=== PATIENT | male | born 1995 | race Two or more races ===

== ENCOUNTER 2025-06-04 06:39 | Inpatient (IN) | payer MEDICAID, SELFPAY ==
[2025-06-04] VITALS (11 sets, daily range): BP systolic 115–138; BP diastolic 79–94; PULSE 74–96; RESP 17–96; TEMP 36.2–37.1; O2SAT 94–98; BMI 22.8
--- NOTE | 2025-06-04 06:49 | EKG_ITS ---
[facility] (Formerly [facility]) Test Date: 2025-06-04 Pat Name: AN WALLACEDepartment: Room: - Gender: Male External Relations Manager: : 1995 Requested By: Fausto Mccormick (CUSTOMER SUPPORT AGENT) Order Number: [id number] Reading MD: Fausto Mccormick (CUSTOMER SUPPORT AGENT) Measurements Intervals [place] Rate: 94 P: 39 WY: 113 QRS: 7 QRSD: 85 T: 44 QT: 311 QTc: 389 Interpretive Statements SINUS RHYTHM WITH SHORT W[place] INTERVAL ST ELEVATION, PROBABLY EARLY REPOLARIZATION [ST ELEVATION WITH NORMALLY INFLECTED T-WAVE] No previous ECG available for comparison /[id number]/S0/[id number].pdf
--- NOTE | 2025-06-04 06:49 | XR_ITS ---
EXAMINATION: PA lateral chest 2 views TECHNIQUE: Upright PA lateral chest 2 views Date and time: June 04, 2025, 0706 hours INDICATIONS: Worsening chest pain 2 months FINDINGS: Poor inspiratory effort No significant cardiac enlargement No pneumonia or pulmonary edema IMPRESSION: Poor inspiratory effort chest x-ray
[2025-06-04 07:17] LABS: Basophils # (Auto) 0.0 Thou/mm3 (0.0-0.2); Basophils % (Auto) 0 % (0-2.5); Eosinophils # (Auto) 0.0 Thou/mm3 (0.0-0.5); Eosinophils % (Auto) 0 % (0-10); Hematocrit 45.1 % (41.0-53.0); Hemoglobin 14.7 g/dL (13.5-16.0); Immature Granulocytes Auto 0.05 Thou/mm3 (0.00-0.00); Lymphocytes # (Auto) 1.3 Thou/mm3 (1.0-4.8); Lymphocytes % (Auto) 12 % (10-50); Mean Corpuscular HGB Conc 32.6 g/dl (31.0-37.0); Mean Corpuscular Hemoglobin 25.8 pg (25.0-35.0); Mean Corpuscular Volume 79 fL (80-100); Monocytes # (Auto) 1.6 Thou/mm3 (0.0-0.8); Monocytes % (Auto) 15 % (0-12); Neutrophils # (Auto) 7.9 Thou/mm3 (1.8-7.7); Neutrophils % (Auto) 72 % (37-80); Nucleated Red Blood Cell # 0.00 Thou/mm3 (0.00-0.00); Nucleated Red Blood Cell % 0 /100 WBC (0); Platelet Count 279 Thou/mm3 (140-440); RDW Standard Deviation 42.1 fL (35.1-43.9); Red Blood Count 5.69 Miln/mm3 (4.50-5.90); White Blood Count 11.0 Thou/mm3 (3.8-10.6)
[2025-06-04 07:43] LABS: Alanine Aminotransferase 35 U/L (10-49); Albumin, Serum 5.7 gm/dL (3.5-5.0); Albumin/Globulin Ratio 1.9 (1.2-2.2); Alkaline Phosphatase 68 U/L (46-116); Anion Gap 12 (7-16); Aspartate Amino Transferase 31 U/L (0-34); BUN/Creatinine Ratio 8 Ratio (12-20); Bilirubin,Total 0.8 mg/dL (0.3-1.2); Blood Urea Nitrogen 7 mg/dL (9-23); Calcium 10.1 mg/dL (8.3-10.6); Calcium (Corrected) 10.1 mg/dL (8.5-10.1); Carbon Dioxide 28.7 mMol/L (20.0-31.0); Chloride 98 mMol/L (98-107); Creatinine (Component) 0.9 mg/dL (0.6-1.3); Estimated Creatinine Clearance 110.3 mL/min (>60); Globulin 3.0 gm/dL (2.3-3.5); Glucose 124 mg/dL (74-106); Osmolality,Calculated 276 (275-295); Potassium 3.9 mMol/L (3.4-5.1); Sodium 139 mMol/L (136-145); Total Protein 8.7 gm/dL (5.7-8.2); eGFR > 60 See Note
[2025-06-04 07:51] LABS: Troponin I 0.596 ng/mL (0.0-0.045)
--- NOTE | 2025-06-04 08:03 | EDNOTE_ITS ---
ED Chest Pain RME/HPI General Chief Complaint: Chest Pain Stated Complaint: CHEST PAIN Time Seen by Provider: 06/04/25 06:49 Arrival date/time: 06/04/25 06:39 30-year-old male who appears to be developmentally delayed presents to the emergency department today with father who reports that the patient has had sharon st pain ongoing since Sunday patient reports that he was mowing the lawn on Sunday developed pain in his chest reports since then has been having pain Limitations: no limitations Related Data Allergies Allergy/AdvReac Type Severity Reaction Status Date / Time No Known Allergies Allergy Verified 06/04/25 06:47 Review of Systems Review of Systems Systems Reviewed: All systems reviewed, normal except as documented Constitutional Constitutional: Reports system reviewed and no additional complaints, except as documented, Denies fever(s) and Denies headache(s) Eyes Eyes: Reports system reviewed and no additional complaints, except as documented and Denies blurry vision ENT Ears, Nose, Mouth, and Throat: Reports system reviewed and no additional complaints, except as documented, Denies headache(s), Denies nasal congestion and Denies nasal discharge Cardiovascular Cardiovascular: Reports system reviewed and no additional complaints, except as documented, Reports chest pain and Denies dyspnea Respiratory Respiratory: Reports system reviewed and no additional complaints, except as documented, Denies chest congestion, Denies cough and Denies dyspnea Gastrointestinal Gastrointestinal: Reports system reviewed and no additional complaints, except as documented and Denies abdominal pain Integumentary/Breasts Skin/Breast: Reports system reviewed and no additional complaints, except as documented and Denies rash Neurologic Neurologic: Reports system reviewed and no additional complaints, except as documented, Reports as per HPI and Denies headache(s) Past Medical History Past Medical History NEUROLOGIC: Negative Neurological Disorders CARDIAC: Negative Cardiac Disorders ED Exam General Limitations: Present no limitations General appearance: Present alert and in no apparent distress Head Head exam: Present atraumatic, normocephalic and normal inspection Eye Eye exam: Present normal appearance, PERRL and EOMI; Absent conjunctival injection ENT ENT exam: Present normal exam, normal oropharynx and mucous membranes moist Neck Neck exam: Present normal inspection, full ROM and trachea midline Chest Chest inspection: Present normal inspection and symmetric chest wall rise Respiratory Respiratory exam: Present normal lung sounds bilaterally; Absent respiratory distress Cardiovascular Cardiovascular exam: Present regular rate, normal rhythm and normal heart sounds; Absent bradycardia, tachycardia or irregular rhythm Abdominal Exam Abdominal exam: Present soft and normal bowel sounds; Absent distention, tenderness, guarding, rebound or rigidity Extremities Exam Extremities exam: Present normal inspection and full ROM Back Exam Back exam: Present normal inspection and full ROM Neurological Exam Neurological exam: Present alert, oriented X3 and CN II-XII intact Psychiatric Psychiatric exam: Present normal affect and normal mood Skin Skin exam: Present warm, dry, intact and normal color Course Quality Measures none Orders Category Date Time Status COVID-19 Screening Questionnaire NOW Care 06/04/25 08:12 Active Decision to Admit X1 Care 06/04/25 08:12 Completed EKG (ED ONLY) *Do not use* NOW Care 06/04/25 06:49 Completed Consult to Cardiology Stat Cons 06/04/25 08:02 Ordered EKG (ED Only) Stat Exams 06/04/25 06:49 Draft XR chest 2V Stat Exams 06/04/25 06:49 Completed CBC Stat Lab 06/04/25 07:10 Completed Comprehensive Metabolic Panel Stat Lab 06/04/25 07:10 Completed Drug Screen,Urine Stat Lab 06/04/25 08:32 Completed Troponin I Stat Lab 06/04/25 07:10 Completed Acetaminophen Jyoti [Tylenol Jyoti] Med 06/04/25 09:35 Discontinued 650 mg PO X1 ONE Aspirin [Ecotrin] Med 06/04/25 10:13 Discontinued 81 mg PO X1 ONE Vital Signs Vital signs: Vital Signs Temperature 98.1 F 06/04/25 06:42 Pulse Rate 93 06/04/25 06:42 Respiratory Rate 18 06/04/25 06:42 Blood Pressure 138/94 H 06/04/25 06:42 Pulse Oximetry (%) 97 06/04/25 06:42 Oxygen Delivery Method Room Air 06/04/25 06:42 O2 saturation 97% on room air with normal limits PROCEDURES: EKG Interpretation #1: Date of EK06/04/25 Time of EK:52 Rate: 94 Interpretation: Interpreted by me EKG Impression: Normal sinus rhythm, No acute ST-T changes, No ectopy, No ischemic changes, Normal QRS, Normal intervals and Normal axis Chest Pain MDM Narrative MDM Narrative:: 30-year-old male who appears to be developmentally delayed presents to the emergency department today with father who reports that the patient has had chest pain ongoing since Sunday patient reports that he was mowing the lawn on Sunday developed pain in his chest reports since then has been having pain On exam patient well-appearing does not appear ill or toxic On examination lungs are clear to auscultation Patient has no tachypnea or dyspnea no critical breathing Patient hemodynamically stable Lab work imaging EKG obtained EKG shows early repolarization no definite ST elevation Troponin elevated at 0.[address] Oakley Consultation: Spoke with Dr. Oakley informed that I would admit the patient to hospital Spoke with hospitalist will admit the patient to the hospital Patient data External records reviewed:: [facility] previous records Clinical information provided by:: patient Social determinants that could affect healthcare access:: none Patient has the following chronic illnesses:: None How is presenting disease/condition affected by chronic disease/condition?: no chronic disease Evaluation data The following diagnostics were reviewed and interpreted by me:: lab results, radiology exam(s) and EKG tracing(s) Lab and/or radiology exams considered but not ordered:: Labs, radiology, EKG obtained Interpretation Summary: Reviewed by me Medications / Prescriptions Medications or Prescriptions considered but not ordered:: Given no med Medication administrations:: Medication Administration History Acetaminophen (Acetaminophen 325 Mg Tablet) 1,000 mg PO Q6H PRN PRN Reason: Fever >100.4 Stop: 07/04/25 10:50 Atorvastatin Calcium (Atorvastatin Calcium 10 Mg Tablet) 10 mg PO HS [facility] Stop: 07/04/25 20:59 Enoxaparin Sodium (Enoxaparin Sod Inj 40 Mg/0.4 Ml Syringe) 40 mg SC QDAY [facility] Stop: 06/19/25 08:59 Ondansetron HCl (Ondansetron Inj 2 Mg/Ml Inj 2 Ml) 4 mg IVP Q6H PRN; Protocol PRN Reason: NAUSEA OR VOMITING Stop: 07/04/25 10:50 Pantoprazole Sodium (Pantoprazole Inj 40 Mg Vial) 40 mg IVP QDAY [facility] Stop: 07/05/25 08:59 Discontinued Medications Acetaminophen (Acetaminophen Jyoti 325 Mg/10 Ml Udc) 650 mg PO X1 ONE Stop: 06/04/25 09:36 Last Admin: 06/04/25 09:42 Dose: 650 mg Documented By: BY Aspirin (Aspirin Ec 81 Mg Tabec) 81 mg PO X1 ONE Stop: 06/04/25 10:14 Last Admin: 06/04/25 11:06 Dose: 81 mg Documented By: BY Given no meds Consultations Consultation(s) initiated? (list below): No Diagnosis Chest Pain Differential Diagnosis: pneumothorax, atypical chest pain, st elevation myocardial infarction, costochondritis and chest pain Most likely diagnosis given after review of the tests above:: Chest pain elevated troponin Admission Indicated Admission indicated?: indicated Admission Request Was there a request for admission?: Yes Admission Attestation Admission request attestation: Discussed case with [] from Hospitalist service regarding admission. Discussed patients ED course, exam findings, labs, and radiology results. The Hospitalist [agrees,declines] to accept the patient for admission. Disposition Plan Disposition Plan: Admit Discharge Plan Plan Patient Disposition: Admit Acute Care w/in Hospital Discharge Disposition comment: Stable Problem List Clinical Impression: Chest pain, Elevated troponin PA/AIR TUBE RELEASER Supervising Physician PA/AIR TUBE RELEASER Supervising Physician: Dr hills
[2025-06-04 08:48] LABS: Amphetamine/Methamp Scrn,U Negative (Negative); Barbiturate Screen,Urine Negative (Negative); Benzodiazepines Screen,Urine Negative (Negative); Benzoylecgonine Screen, Ur Negative (Negative); Fentanyl Screen,Urine Negative (Negative); Opiate Screen,Urine Negative (Negative); THC Screen,Urine Negative (Negative)
[2025-06-04] MEDS: ACETAMINOPHEN SOL 325 MG/10 ML UDC 650 MG PO (09:42)
--- NOTE | 2025-06-04 10:02 | PC.SS ---
This [employer] credit intern met with patient at bedside to complete initial assessment, his girlfriend and her parents are present. Gilberto is full code. He has given permission to have girlfriends mother Neela Thao complete assessment. Neela confirmed mailing address [place] and telephone number is [phone]. She states patient is developmentally delayed, he is not employed and does not attend day services. She states he is not conserved or has POA in place, and is not affiliated with [facility] but will inquire about services. Patient lives with her, she is his payee for his social security benefits, he recieves $1, 290 and receives $182 in food stamps. Patient PCP is Dr. Saeed at [facility] and uses [facility] pharmacy. No questions or concerns at this time.
--- NOTE | 2025-06-04 10:54 | ECHO_ITS ---
Patient Info Name: Gilberto Mcghee Age: 30 years : 1995 Gender: Male Ht: 168 cm Wt: 64 kg BSA: 1.74 m2 BP: 135 / 81 mmHg HR: 84 bpm Heart Rhythm: Sinus Rhythm Exam Date: 06/04/2025 2:10 PM Admit Date: 06/04/2025 Site: [facility] Room Number: [id number] Patient Status: I Exam Type: CA echo doppler complete Undergraduate Intern: Bibi Briggs Ordering Physician: Charli Durán Study Info Indications Chest pain, elevated troponins. - Primary Location: S2NX Left Ventricular Outflow Tract Name Value Normal LVOT 2D LVOT Diameter 1.9 cm LVOT Doppler LVOT Peak Velocity 95 cm/s LVOT Mean Gradient 2 mmHg LVOT VTI 20 cm LVOT VTI/AV VTI Ratio 0.9 LVOT Stroke Volume 57 ml Pulmonic Valve Name Value Normal PV Doppler PV Peak Velocity 115 cm/s PV Regurgitation Doppler CT Peak End Diastolic Velocity 45 cm/s Mitral Valve Name Value Normal MV Doppler MV Decel Henry 330 cm/s2 MV PHT 45 ms MV Area (PHT) 4.9 cm2 4.0-5.0 MV Diastolic Function MV E Peak Velocity 51 cm/s MV A Peak Velocity 55 cm/s MV E/A 0.9 MV Annular TDI MV Septal e' Velocity 8.2 cm/s MV E/e' (Septal) 6.3 MV Lateral e' Velocity 8.4 cm/s MV E/e' (Lateral) 6.1 MV e' Average 8.27 cm/s MV E/e' (Average) 6.2 Tricuspid Valve Name Value Normal TV Regurgitation Doppler TR Peak Velocity 261 cm/s Estimated PAP/RSVP RA Pressure 3 mmHg <=5 PA Systolic Pressure 30 mmHg <36 RV Systolic Pressure 30 mmHg <36 TV Annular TDI TV Lateral Debo s' Velocity 12.8 cm/s >=9.5 Aortic Valve Name Value Normal AV 2D/MM AV Cusp Sep (MM) 1.0 cm AV Doppler AV Peak Velocity 108 cm/s AV Mean Gradient 3 mmHg AV VTI 21 cm AV Area (Cont Eq VTI) 2.7 cm2 >=3.0 AV Area (Cont Eq He) 2.5 cm2 AV DI (He) 0.88 AV Regurgitation 2D LVOT Area 2.8 cm2 Ventricles Name Value Normal LV Dimensions 2D/MM IVS Diastolic Thickness (2D) 0.9 cm 0.6-1.0 LVID Diastole (2D) 5.2 cm 4.2-5.8 LVIW Diastolic Thickness (2D) 0.9 cm 0.6-1.0 LVID Systole (2D) 3.5 cm 2.5-4.0 LVOT Diameter 1.9 cm LV Mass (2D Cubed) 168.99 g 88.00-224.00 LV Mass Index (2D Cubed) 97 g/m2 49-115 Relative Wall Thickness (2D) 0.35 <=0.42 IVS/LVIW Diastolic Thickness (2D) 1.00 0.00-1.50 LV Fractional Shortening/Ejection Fraction 2D/MM LV Fractional Shortening (2D) 33 % 25-43 LV EF (2D Teichholz) 61 % RV Dimensions 2D/MM TV Lateral Debo s' Velocity 12.8 cm/s >=9.5 Atria Name Value Normal LA Dimensions LA Volume (4C A-L) 38 ml LA Volume (BP A-L) 37 ml Left Ventricle Left ventricular chamber dimension is normal. Left ventricular systolic function is normal with visually estimated ejection fraction of 60-65%. There is normal geometry noted in the left ventricle. Left ventricular segmental wall motion is normal. There is grade I diastolic dysfunction in the left ventricle. Right Ventricle Right ventricular chamber dimension is normal. Right ventricular systolic function is normal. Left Atrium Left atrial chamber dimension is normal. Right Atrium Right atrial chamber dimension is normal. Aortic Valve The aortic valve is trileaflet. There is no aortic valve sclerosis. There is no aortic valve stenosis with a peak velocity of 108 cm/s, mean gradient of 3 mmHg, and aortic valve area of 2.7 cm2. There is no aortic valve regurgitation. Pulmonic Valve The pulmonic valve is normal. There is no pulmonic valve stenosis. There is trace pulmonic regurgitation. Mitral Valve The mitral valve has normal leaflets. There is no mitral valve stenosis. There is trace mitral valve regurgitation. Tricuspid Valve The tricuspid valve leaflets are normal. There is no tricuspid valve stenosis. There is mild tricuspid valve regurgitation. No pulmonary hypertension, estimated pulmonary arterial systolic pressure is 30 mmHg and systemic blood pressure of 135 mmHg in systole. Pericardium/Pleural The pericardium appears normal. There is no pericardial effusion. No pleural effusion visualized. Inferior Vena Cava Normal inferior vena cava with >50% collapse upon inspiration consistent with normal right atrial pressure, 3 mmHg. Aorta The aortic measurements are indexed to age and body surface area. The aortic root at the sinus of Valsalva is not well visualized. The prox ascending aorta is not well visualized. Summary 1. Left ventricle size is normal and systolic function is normal. Estimated ejection fraction is 60-65%. There is grade I diastolic dysfunction. 2. Right ventricle chamber size is normal and systolic function is normal. 3. There is trace mitral valve regurgitation. 4. There is mild tricuspid valve regurgitation. 5. trace pulmonic valve regurgitation. 6. Normal IVC with estimated RA pressure 3 mmHg. Report Signatures Finalized by Tamanna Oakley on 06/04/2025 06:16 PM
[2025-06-04] MEDS: ASPIRIN EC 81 MG TABEC PO (11:06)
--- NOTE | 2025-06-04 12:15 | PC.NURSE ---
REPORT GIVEN TO NI
[2025-06-04 12:43] LABS: Troponin I 1.136 ng/mL (0.0-0.045)
--- NOTE | 2025-06-04 13:42 | ESHP_ITS ---
<Statement entered by Nallely Welsh MD - 06/05/25 08:03> Patient was seen and examined by me personally. I have directly supervised and reviewed documentation by the team resident and agree with its findings with any exceptions or additional findings as below. Plan of care was discussed with the attending, Dr. Borden. Nallely Welsh, PGY-3 Documentation for date of: 06/04/25 HPI History of Present Illness History of present illness: HPI: 30-year-old male with developmental disability presented to the ED on 06/04/2025 with a 2-day history of waxing and waning chest pain. He also endorsed pain in the bilateral shoulders. He denies having a cough, shortness of breath, or worsening of his symptoms during ambulation. He also reports a headache of 2 days duration. He was found to have an elevated troponin of 0.5 in the ED and a normal EKG. History was gathered with the help of the patient's girlfriend's father, who the patient lives with. This gentleman mentions that the patient has special needs. The patient is able to give one-word answers but it is uncertain if the patient fully comprehends his current situation. The patient was admitted for elevated troponins. ED course: * Vitals on arrival: Significant for stage II hypertension 138/94 * Labs on arrival: Significant for troponin 0.5, WBC 11.0, total protein 8.7, albumin 5.7. U tox negative. * Imaging: EKG showed a sinus rhythm. Chest x-ray negative for pneumonia. * Patient was given 650 mg of Tylenol, 81 mg aspirin. His troponin up trended to 1.1. History: (Gathered from patient and patient's girlfriend's father, who he lives with) * Past medical history: Special needs per the patient's girlfriend's father, otherwise no past medical history * Surgical history: Denies * Social history: Denies alcohol tobacco or drug use. Lives with girlfriend and her parents * Home medications: Denies * Allergies: No known drug allergies Review of Systems Review of Systems Narrative Review of Systems: Review of Systems: (Gathered from the patient and his girlfriend's father) * General: Denies fevers, chills. Does mention 1 episode of dizziness at an unspecified time. * HEENT: Endorses a headache and runny nose 2 days duration. * Cardiac: Admits to chest pain, waxing and waning, not made worse by walking or better by resting. * Pulmonary: Denies shortness of breath or cough. * GI: Denies nausea, vomiting, diarrhea, constipation, melena, or hematochezia. * : Denies dysuria, hematuria, frequency, or urgency. * MSK: Mentions pain in the shoulders bilaterally. * Neuro: Denies weakness, numbness, vision changes, or speech difficulty. Exam Vital Signs Temp Pulse Resp BP Pulse Ox O2 Del Method 97.2 F 84 22 H 135/81 H 96 Room Air 06/04/25 13:03 06/04/25 13:03 06/04/25 13:03 06/04/25 13:03 06/04/25 13:03 06/04/25 13:03 Narrative Exam General: Awake and in no acute distress. Conversational and non-toxic appearing. Neurologic: GCS 15. No gross neurological deficit, and patient able to move all 4 extremities. HEENT: Normocephalic, atraumatic, mucous membranes moist. Pupils reactive to light. Heart: Regular rate and rhythm, normal S1 and S2, no murmurs. Lungs: Clear to auscultation bilaterally with no wheezing or crackles. Abdomen: Soft, nondistended, nontender, positive bowel sounds. No guarding or rebound tenderness. Extremities: No edema. 2+ radial and dorsalis pedis pulses bilaterally. Skin: Warm. Dry. No rash or ecchymoses. Results: Labs 06/04/25 07:10 06/04/25 07:10 Labs: Short CBC 06/04/25 Range/Units 07:10 WBC 11.0 H (3.8-10.6) Thou/mm3 Hgb 14.7 (13.5-16.0) g/dL Hct 45.1 (41.0-53.0) % Plt Count 279 (140-440) Thou/mm3 BMP 06/04/25 07:10 Sodium 139 Potassium 3.9 Chloride 98 Carbon Dioxide 28.7 BUN 7 L Creatinine 0.9 Glucose 124 H Calcium 10.1 Cardiac Enzymes 06/04/25 06/04/25 Range/Units 07:10 11:43 Troponin I 0.596 H* 1.136 H* D (0.0-0.045) ng/mL Liver Function 06/04/25 Range/Units 07:10 Total Bilirubin 0.8 (0.3-1.2) mg/dL AST 31 (0-34) U/L ALT 35 (10-49) U/L Alkaline Phosphatase 68 (46-116) U/L Albumin 5.7 H (3.5-5.0) gm/dL Quality Measures Quality Measures none Medications Home Medications and Allergies Allergies Allergy/AdvReac Type Severity Reaction Status Date / Time No Known Allergies Allergy Verified 06/04/25 06:47 Visit Medications Acetaminophen (Acetaminophen 325 Mg Tablet) 1,000 mg PO Q6H PRN PRN Reason: Fever >100.4 Stop: 07/04/25 10:50 Atorvastatin Calcium (Atorvastatin Calcium 10 Mg Tablet) 10 mg PO HS [facility] Stop: 07/04/25 20:59 Enoxaparin Sodium (Enoxaparin Sod Inj 40 Mg/0.4 Ml Syringe) 40 mg SC QDAY [facility] Stop: 06/19/25 08:59 Ondansetron HCl (Ondansetron Inj 2 Mg/Ml Inj 2 Ml) 4 mg IVP Q6H PRN; Protocol PRN Reason: NAUSEA OR VOMITING Stop: 07/04/25 10:50 Pantoprazole Sodium (Pantoprazole Inj 40 Mg Vial) 40 mg IVP QDAY [facility] Stop: 07/05/25 08:59 Discontinued Medications Acetaminophen (Acetaminophen Jyoti 325 Mg/10 Ml Udc) 650 mg PO X1 ONE Stop: 06/04/25 09:36 Last Admin: 06/04/25 09:42 Dose: 650 mg Aspirin (Aspirin Ec 81 Mg Tabec) 81 mg PO X1 ONE Stop: 06/04/25 10:14 Last Admin: 06/04/25 11:06 Dose: 81 mg Assessment & Plan Plan Summary: 30-year-old male with a past medical history of developmental disability who presented to the ED with a 2-day history of chest pain on 06/04/2025. He was found to have elevated troponins but his EKG was negative for any acute ST segment changes. He was admitted for his elevated troponins. #Elevated troponins #Possible NSTEMI type II #Chest pain #Leukocytosis #Possible pericarditis * Patient endorsed to days of chest pain that has waxed and waned * Pain is not associated with physical activity * He has no associated shortness of breath * EKG was negative for any ST segment changes and there was a sinus rhythm * Repeat troponin approximately 3 hours after arrival was 1.1 * Patient did have a slightly elevated WBC count, likely reactive * When the patient got to the floors, he was noted to have diffuse ST segment changes on panel monitor * Patient also was found to have positional chest pain made worse with leaning forward and deep inspiration * Consider viral pericarditis versus NSTEMI type II versus infectious etiology versus stress Plan: * Aspirin 81 mg daily * Atorvastatin 10 mg nightly * Cardiology consulted * Echo ordered Reassessment: * Trend troponins #Developmental disability * Patient presented with his girlfriend's father, who he resides with * Per the patient's girlfriend's father, the patient has special needs * Patient gives one-word answers, though difficult to determine if patient is fully comprehending his current scenario Plan: * No direct intervention at this time Hospital Maintenance: DVT ppx: Subcu heparin 5000 units every 8 hours GI ppx: Not indicated Diet: Pending cardiology consult, okay to take oral medications IV lines: Peripheral IV Code status: Full code Dispo: Admitted to telemetry, trending troponins, pending echo and cardiology consult. Patient was seen and discussed with my attending physician Dr. Michi CANSECO and my senior resident Dr. Anitha CANSECO PGY-3. Charli Durán DO PGY-1. Attending Provider Attestation/Addendum I reviewed labs, imaging, EKG, home medications and prior available records. Face to face evaluation was performed by me. I have personally examined the patient and discussed assessment and plan with the IM team. I reviewed the resident note and agree with the plan with exceptions as below. Chest pain at rest Elevated troponin Leukocytosis EKG did showed nonspecific ST pattern Troponins continue to trend up Started aspirin and atorvastatin Ordered echocardiogram Consulted cardiology Management of pain as needed
[2025-06-04 16:32] LABS: Troponin I 0.995 ng/mL (0.0-0.045)
--- NOTE | 2025-06-04 16:40 | ESCONSULT_ITS ---
<Statement entered by Tamanna Oakley MD - 06/06/25 18:13> I personally evaluated and examined this patient with PGY 2Dr. Dusty Leon and the patient appears to be presenting to the hospital with fairly atypical sharp chest pains with different relation with expiration and inspiration worsened and inspiration atypical pain with EKG suggestive of possible pericarditis. There is slight troponin elevation not unusual with acute pericarditis patient is clinically improving no evidence of myocardial infarction will observe the patient for 24 hours up to 48 hours discharged home on anti-inflammatory therapy and he has severe pain colchicine also could be given. Evaluated patient with resident resident PGY 2 agree with treatment plan recommendation as documented by resident physician. HPI Data of Consult Requesting Physician: Maciel Borden MD Admitting Provider: Maciel Borden MD Attending Provider: Maciel Borden MD Primary Care Provider: Greyson Saeed MD Consult Narrative Reason for consult: Chest pain History of present illness: 30-year-old male with past medical history of Down syndrome presenting to the ED on 06/04 with chest pain. Patient states pain started sometime around Sunday and has progressively worsened over the past few days. Patient describes the pain as a stabbing sensation in the middle of his chest which does not radiate to any other part of his body. Patient denies having any associated shortness of breath, palpitations, PND, orthopnea or lower extremity edema; although, history is somewhat difficult to obtain as patient has underlying Down syndrome and developmental delay. Patient's mother in law is bedside and provided history regarding the patient's medical and living situation. Apparently, patient recently moved in with them but used to live with biological mother who apparently did not take good care of him. Patient has not seen a doctor in several years but is in the process of establishing care at this time. Patient does not take any prescribed medications but does state that about 1 week ago had an upper respiratory tract infection with mostly runny nose, which is still persisting. Patient's [id number] also states that the patient has contact with rats/mice and that apparently patient's fianc? has also been experiencing some chest discomfort. Patient otherwise has never seen a network operations project manager in the past and denies having any significant family history of cardiac disease. Medical history: As stated above Surgical history: Denies Allergies: NKDA Medications: Denies taking any prescribed medications, supplements Family history: Noncontributory Social history: Patient is , does not work, on disability, denies any alcohol, tobacco or illicit drug use ROS: All 12 systems assessed and the patient denies unless otherwise stated in HPI In the ED, patient presented mildly hypertensive 138/94, heart rate of 93, respiratory of 18, afebrile satting 97 on room air. Pertinent lab findings include WBC of 11, glucose 124, liver enzymes within normal limits, troponin Initially was 0.596, then up trended and peaked at 1.136 and is now downtrending at 0.995, UTOX was negative for any substance use, chest x-ray did not show any pneumonia or other significant cardiac enlargement, EKG did show diffuse ST changes noted on precordial and lateral leads but was otherwise sinus, echocardiogram is pending official read. Patient was admitted for the workup of NSTEMI type II, likely secondary to pericarditis from upper respiratory tract infection with cardiology consultation. cc:: cc: Maciel Borden MD Exam Vital Signs Temp Pulse Resp BP Pulse Ox O2 Del Method 97.2 F 84 22 H 135/81 H 96 Room Air 06/04/25 13:03 06/04/25 13:03 06/04/25 13:03 06/04/25 13:03 06/04/25 13:03 06/04/25 13:03 Narrative Exam Physical Exam: GENERAL: Awake, answers questions appropriately although slightly delayed, appears stated age HEENT: NC/AT. Moist mucosa. PERRLA/EOMI. Hypotelorism noted. CARDIO: Heart RRR, no obvious murmurs, rubs or gallops, no JVD. PULM: No coughing or visible SOB. Lungs CTA B/L. GI: Abdomen soft, NT/ND, +BS. SKIN/MSK/EXT: Thumb IP joint mucoid cyst noted bilaterally. No wounds/discoloration/rashes/edema/amputations. +Pedal pulses present B/L. NEURO: Oriented x3, no focal neurologic deficits, Moves extremities x4. Results Labs 06/04/25 07:10 06/04/25 07:10 Labs: Short CBC 06/04/25 Range/Units 07:10 WBC 11.0 H (3.8-10.6) Thou/mm3 Hgb 14.7 (13.5-16.0) g/dL Hct 45.1 (41.0-53.0) % Plt Count 279 (140-440) Thou/mm3 BMP 06/04/25 07:10 Sodium 139 Potassium 3.9 Chloride 98 Carbon Dioxide 28.7 BUN 7 L Creatinine 0.9 Glucose 124 H Calcium 10.1 Cardiac Enzymes 06/04/25 06/04/25 06/04/25 Range/Units 07:10 11:43 15:49 Troponin I 0.596 H* 1.136 H* D 0.995 H* (0.0-0.045) ng/mL Liver Function 06/04/25 Range/Units 07:10 Total Bilirubin 0.8 (0.3-1.2) mg/dL AST 31 (0-34) U/L ALT 35 (10-49) U/L Alkaline Phosphatase 68 (46-116) U/L Albumin 5.7 H (3.5-5.0) gm/dL Quality Measures Quality Measures none Medications Home Medications and Allergies Allergies Allergy/AdvReac Type Severity Reaction Status Date / Time No Known Allergies Allergy Verified 06/04/25 06:47 Visit Medications Acetaminophen (Acetaminophen 325 Mg Tablet) 1,000 mg PO Q6H PRN PRN Reason: Fever >100.4 Stop: 07/04/25 10:50 Aspirin (Aspirin Ec 81 Mg Tabec) [facility] Stop: 07/05/25 08:59 Atorvastatin Calcium (Atorvastatin Calcium 10 Mg Tablet) 10 mg PO HS SHANA Stop: 07/04/25 20:59 Heparin Sodium (Porcine) (Heparin Sod Inj 5000 Unit/Ml Vial) 5,000 unit SC Q8HR SHANA Stop: 06/18/25 21:59 Ondansetron HCl (Ondansetron Inj 2 Mg/Ml Inj 2 Ml) 4 mg IVP Q6H PRN; Protocol PRN Reason: NAUSEA OR VOMITING Stop: 07/04/25 10:50 Discontinued Medications Acetaminophen (Acetaminophen Jyoti 325 Mg/10 Ml Udc) 650 mg PO X1 ONE Stop: 06/04/25 09:36 Last Admin: 06/04/25 09:42 Dose: 650 mg Aspirin (Aspirin Ec 81 Mg Tabec) 81 mg PO X1 ONE Stop: 06/04/25 10:14 Last Admin: 06/04/25 11:06 Dose: 81 mg Enoxaparin Sodium (Enoxaparin Sod Inj 40 Mg/0.4 Ml Syringe) 40 mg SC [facility] Stop: 06/19/25 08:59 Pantoprazole Sodium (Pantoprazole Inj 40 Mg Vial) 40 mg IVP QDAY [facility] Stop: 07/05/25 08:59 Assessment & Plan Plan 30-year-old male with past medical history of Down syndrome presenting with chest pain was admitted for the workup of NSTEMI type II, likely secondary to pericarditis from upper respiratory tract infection with cardiology consultation. #NSTEMI type II #Elevated troponin #Likely secondary to pericarditis, viral etiology As noted above in HPI, patient's been having some chest discomfort for about 2 days History of recent upper respiratory tract infection with persistent rhinorrhea 66?points VANESSA Score 1.4?% Probability of from admission to 6 months Patient does not have any risk factors for coronary artery disease, denies history of hypertension, diabetes, obesity, family history of heart disease, tobacco dependence Troponin Initially was 0.596, then up trended and peaked at 1.136 and is now downtrending at 0.995 UTOX was negative for any substance use Chest x-ray did not show any pneumonia or other significant cardiac enlargement EKG did show diffuse ST changes noted on precordial and lateral leads but was otherwise sinus Plan: Pending echo read to rule out pericardial effusion Will likely start indomethacin 25 mg every 8 hours for 1 week and taper to every Q12H for 1 week followed by 1 week of 25 mg daily Will consider adding colchicine 0.5 mg daily (as patient is less than 70 kg) as well Can discontinue aspirin Can also discontinue atorvastatin if morning lipid panel is unremarkable Continue telemetry monitoring with likely discharge within the next 24 hours #Developmental delay #Down syndrome #Hypertensive #Hyperglycemia #Leukocytosis Rest of medical problems to be managed by primary hospitalist team Patient seen and assessed with attending Dr. Adin Leon, DO PGY-2 Internal Medicine - [facility]
[2025-06-04] MEDS: INDOMETHACIN 25 MG CAPSULE PO ×2 (18:33→22:49)
[2025-06-04] MEDS: ACETAMINOPHEN 500 MG TABLET 1000 MG PO (20:49)
[2025-06-04] MEDS: ATORVASTATIN CALCIUM 10 MG TABLET PO (20:49)
[2025-06-04] MEDS: HEPARIN SOD INJ 5000 UNIT/ML VIAL SC (22:50)
[2025-06-05] VITALS (7 sets, daily range): BP systolic 113–145; BP diastolic 69–96; PULSE 60–104; RESP 18–96; TEMP 35.8–36.1; O2SAT 98–99; BMI 22.6
[2025-06-05] MEDS: INDOMETHACIN 25 MG CAPSULE PO (05:26)
[2025-06-05] MEDS: HEPARIN SOD INJ 5000 UNIT/ML VIAL SC (05:33)
[2025-06-05 06:28] LABS: Basophils # (Auto) 0.0 Thou/mm3 (0.0-0.2); Basophils % (Auto) 0 % (0-2.5); Eosinophils # (Auto) 0.1 Thou/mm3 (0.0-0.5); Eosinophils % (Auto) 1 % (0-10); Hematocrit 45.9 % (41.0-53.0); Hemoglobin 14.8 g/dL (13.5-16.0); Immature Granulocytes Auto 0.03 Thou/mm3 (0.00-0.00); Lymphocytes # (Auto) 1.4 Thou/mm3 (1.0-4.8); Lymphocytes % (Auto) 19 % (10-50); Mean Corpuscular HGB Conc 32.2 g/dl (31.0-37.0); Mean Corpuscular Hemoglobin 25.8 pg (25.0-35.0); Mean Corpuscular Volume 80 fL (80-100); Monocytes # (Auto) 1.2 Thou/mm3 (0.0-0.8); Monocytes % (Auto) 16 % (0-12); Neutrophils # (Auto) 4.5 Thou/mm3 (1.8-7.7); Neutrophils % (Auto) 63 % (37-80); Nucleated Red Blood Cell # 0.00 Thou/mm3 (0.00-0.00); Nucleated Red Blood Cell % 0 /100 WBC (0); Platelet Count 286 Thou/mm3 (140-440); RDW Standard Deviation 43.5 fL (35.1-43.9); Red Blood Count 5.73 Miln/mm3 (4.50-5.90); White Blood Count 7.1 Thou/mm3 (3.8-10.6)
[2025-06-05 06:49] LABS: Alanine Aminotransferase 35 U/L (10-49); Albumin, Serum 5.5 gm/dL (3.5-5.0); Alkaline Phosphatase 59 U/L (46-116); BUN/Creatinine Ratio 17 Ratio (12-20); Blood Urea Nitrogen 15 mg/dL (9-23); Calcium 10.0 mg/dL (8.3-10.6); Calcium (Corrected) 10.0 mg/dL (8.5-10.1); Chloride 100 mMol/L (98-107); Creatinine (Component) 0.9 mg/dL (0.6-1.3); Estimated Creatinine Clearance 109.8 mL/min (>60); Glucose 99 mg/dL (74-106); Magnesium 2.4 mg/dL (1.6-2.6); Osmolality,Calculated 278 (275-295); Potassium 4.1 mMol/L (3.4-5.1); Sodium 139 mMol/L (136-145); Triglycerides 98 mg/dL (30-150); eGFR > 60 See Note
[2025-06-05 07:03] LABS: Albumin/Globulin Ratio 1.7 (1.2-2.2); Anion Gap 15 (7-16); Aspartate Amino Transferase 34 U/L (0-34); Bilirubin,Total 0.8 mg/dL (0.3-1.2); Carbon Dioxide 24.5 mMol/L (20.0-31.0); Cardiac Risk Estimate 2.7 RATIO (4.0-6.7); Cholesterol 157 mg/dL (132-200); Globulin 3.2 gm/dL (2.3-3.5); HDL Cholesterol 59 mg/dL (40-60); LDL Cholesterol,Calculated 78 mg/dL (0-130); Phosphorous 3.9 mg/dL (2.4-5.1); Total Protein 8.7 gm/dL (5.7-8.2)
[2025-06-05 09:54] LABS: Sed Rate (ESR) 76 mm/hr (0-15)
--- NOTE | 2025-06-05 10:37 | ESDS_ITS ---
Planned Discharge Date 06/05/25 DS: Providers Provider Date of admission: 06/04/25 10:51 Primary care physician: Greyson Saeed MD Admitting Provider: Maciel Borden MD Attending Provider on Admission: Maciel Borden MD Consults: 06/04/25 08:02 Consult to Cardiology Stat Comment: Consulting Provider: Tamanna Oakley Attending Provider on DC: Nitin Butcher MD Discharging Provider: Charli Durán DO DS: Diagnosis Discharge Diagnosis (1) Chest pain: Status: Acute (2) Elevated troponin: Status: Acute Problem List Completed Was Problem List Reviewed/Reconciled?: Yes Hospital Course Hospital Course Hospital course: Hospital Course: 30-year-old male with Down syndrome presented to the ED on 06/04/2025 with a 2- day history of waxing and waning chest pain. He also endorsed pain in the bilateral shoulders. He denied having a cough, shortness of breath, or worsening of his symptoms during ambulation. He also reported a headache of 2 days duration. He was found to have an elevated troponin of 0.5 in the ED and a normal EKG. The patient was admitted for elevated troponins. The patient's troponins up trended and then down trended. On telemetry, he was found to have diffuse ST segment changes. The patient also had positional chest pain, made worse by leaning forward. Cardiology was consulted and the clinical diagnosis of viral pericarditis was made. The patient tolerated an oral diet and his vitals were stable for discharge. The patient was started on indomethacin, which he will take outpatient as a tapering dose. He will follow-up with his PCP upon discharge. Problem List: #Elevated troponins #Possible NSTEMI type II #Chest pain #Leukocytosis #Possible pericarditis #Down syndrome Discharge Instructions: * Take your indomethacin 25 mg 3 times per day for 1 week, 2 times per day for the second week, and 1 time per day for the third week * Follow-up with PCP within 1-2 weeks of discharge * If you do not have a PCP, then you can follow-up at the [facility] * Return to the emergency room if symptoms worsen The patient was seen and discussed with my attending physician Dr. Hadley CANSECO and my senior resident Dr. Anitha CANSECO PGY-3. Charli Durán DO PGY-1 Time Spent with Patient Time attestation: Total time spent providing and/or coordinating discharge services: More than 50% Time spent: Greater than 30 minutes Exam Vital Signs Temp Pulse Resp BP Pulse Ox O2 Del Method 96.9 F 65 18 113/71 98 Room Air 06/05/25 08:00 06/05/25 08:00 06/05/25 08:00 06/05/25 08:00 06/05/25 08:00 06/05/25 08:00 Narrative Exam General: Awake and in no acute distress. Conversational and non-toxic appearing. Neurologic: GCS 15. No gross neurological deficit, and patient able to move all 4 extremities. HEENT: Hypotelorism. Normocephalic, atraumatic, mucous membranes moist. Pupils reactive to light. Heart: Regular rate and rhythm, normal S1 and S2, no murmurs. Lungs: Clear to auscultation bilaterally with no wheezing or crackles. Abdomen: Soft, nondistended, nontender, positive bowel sounds. No guarding or rebound tenderness. Extremities: Thumb IP joints have mucoid cysts bilaterally. No edema. 2+ radial and dorsalis pedis pulses bilaterally. Skin: Warm. Dry. No rash or ecchymoses. Discharge Plan Plan Patient Disposition: HOME (Self Care) Patient condition on transfer: Stable Care Plan Goals: Instructions: * Take your indomethacin 25 mg 3 times per day for 1 week, 2 times per day for the second week, and 1 time per day for the third week * Follow-up with PCP within 1-2 weeks of discharge * If you do not have a PCP, then you can follow-up at the [facility] * Return to the emergency room if symptoms worsen Prescriptions/Referrals Prescriptions/Med Rec: New indomethacin 25 mg capsule 25 mg PO TID MDD 75 mg 21 Days Qty: 63 0RF Rx Instructions: administer with food or milk Referrals: Greyson Saeed MD [Primary Care Provider, Family Practice] Patient/Caregiver Discharge Instructions Education Materials: Pericarditis, Communicating About Pain, ED Pericarditis Print Language: Croatian Stand Alone Forms: [employer]akira Award Info., Patient Portal Info Letter Discharge Order Discharge Orders: Discharge (Routine); Ordered 06/05/25 Ordered By: Charli Durán Quality Discharge Quality Measures none MD Attestestation MD Attestation I discussed with and supervised the resident physician who took care of this p atient. I agree with the assessment and discharge plan as above. I spoke with the patient's parents at bedside. The patient should take his medications as prescribed. He should follow-up with a primary care provider. Return to the emergency room for recurrent symptoms. Discussed with housestawinsome
--- NOTE | 2025-06-05 15:11 | PC.SS ---
update: Patient to d/c home today. No d/c needs.
--- NOTE | 2025-06-05 18:05 | PD.RESPRO ---
Documentation for date of: 06/05/25 Exam Vital Signs Temp Pulse Resp BP Pulse Ox O2 Del Method 96.5 F L 70 18 145/96 H 98 Room Air 06/05/25 15:00 06/05/25 15:00 06/05/25 15:00 06/05/25 15:00 06/05/25 15:00 06/05/25 15:00 Objective Labs 06/05/25 05:45 06/05/25 05:45 Labs: Laboratory Results - last 24 hr 06/05/25 05:45 WBC 7.1 RBC 5.73 Hgb 14.8 Hct 45.9 MCV 80 MCH 25.8 MCHC 32.2 RDW Std Deviation 43.5 Plt Count 286 Neut % (Auto) 63 Lymph % (Auto) 19 [place] % (Auto) 16 H Eos % (Auto) 1 Baso % (Auto) 0 Neut # (Auto) 4.5 Lymph # (Auto) 1.4 [place] # (Auto) 1.2 H Eos # (Auto) 0.1 Baso # (Auto) 0.0 Immature Gran # (Auto) 0.03 H Absolute Nucleated RBC 0.00 Immature Gran % 0 Nucleated RBC % 0 ESR 76 H Sodium 139 Potassium 4.1 Chloride 100 Carbon Dioxide 24.5 Anion Gap 15 BUN 15 Creatinine 0.9 Estim Creat Clear Calc 109.8 eGFR > 60 BUN/Creatinine Ratio 17 Glucose 99 Calculated Osmolality 278 Calcium 10.0 Corrected Calcium 10.0 Phosphorus 3.9 Magnesium 2.4 Total Bilirubin 0.8 AST 34 ALT 35 Alkaline Phosphatase 59 Total Protein 8.7 H Albumin 5.5 H Globulin 3.2 Albumin/Globulin Ratio 1.7 Triglycerides 98 Cholesterol 157 LDL Cholesterol, Calc 78 HDL Cholesterol 59 Cholesterol/HDL Ratio 2.7 L Quality Measures Quality Measures none Assessment & Plan Assessment Current Active Medications: Generic Name Dose Route Start Last Admin Trade Name Freq PRN Reason Stop Dose Admin Acetaminophen 1,000 mg 06/04/25 20:58 Acetaminophen 500 Mg Tablet PO 07/04/25 10:50 Q6H PRN Pain 1 to 3, FEVER >100.4 Heparin Sodium (Porcine) 5,000 unit 06/04/25 22:00 06/05/25 15:17 Heparin Sod Inj 5000 Unit/Ml Vial SC 06/18/25 21:59 Not Given Q8HR SHANA Indomethacin 25 mg 06/04/25 17:10 06/05/25 05:26 Indomethacin 25 Mg Capsule PO 07/04/25 17:09 25 mg TID SHANA Administration Ondansetron HCl 4 mg 06/04/25 10:51 Ondansetron Inj 2 Mg/Ml Inj 2 Ml IVP 07/04/25 10:50 Q6H PRN NAUSEA OR VOMITING Protocol
== END 2025-06-05 15:13 | disposition home or self-care (01) | DRG 207 ==
LOC: SERX 08:46 → SERHOLD 11:10 → S2NX 12:30
PROVIDERS: Internal Medicine; Nurse Practitioner Primary Care; Admitting Provider Student in an Organized Health Care Education/Training Program; Emergency Provider Family Medicine; PCP Family Medicine; Visit Provider Student in an Organized Health Care Education/Training Program
DX: I30.1 Infective pericarditis (principal); I10 Essential (primary) hypertension; Q90.9 Down syndrome, unspecified
CPT/HCPCS: 36415; 71046; 80053; 80061; 80307; 83735; 84100; 84484; 85025; 85652; 87081; 93005; 93306; 99283; J1644; A9270